=== PATIENT | male | born 1950 | race Caucasian/White ===

== ENCOUNTER 2016-12-02 14:47 | Emergency (ER) | payer OTHER, BC ==
[~2016-12-02] VITALS: Ht 167.6 cm; Wt 83.9 kg
--- NOTE | 2016-12-02 14:51 | NUR ---
Pt bib ra for syncope while transfering to bed, recent prostate removal. Awaiting md order.
[2016-12-02] MEDS ORDERED: IV NS 0.9% 1,000 ML BAG IV ONE (15:00)
[2016-12-02] MEDS ORDERED: IV SET PRIMARY PUMP SET 1 EA INFUS.SET MC ONE ×2 (15:01→19:25)
[2016-12-02] MEDS ORDERED: IV NS 0.9% 1,000 ML ONE ×2 (15:01→19:25)
[2016-12-02 15:13] LABS: BASOPHILS % (AUTO) 0.2 % (0.0-2.0); EOSINOPHILS # (AUTO) 0.1 /CMM (0.0-0.7); EOSINOPHILS % (AUTO) 0.6 % (0.0-6.0); HEMATOCRIT 24 % (39-51); HEMOGLOBIN 8.1 g/dL (13.5-17.5); LYMPHOCYTES # (AUTO) 1.1 /CMM (0.8-4.8); LYMPHOCYTES % (AUTO) 6.4 % (20.0-44.0); MEAN CORPUSCULAR HEMOGLOBIN 32 PG (26.0-33.0); MEAN CORPUSCULAR HGB CONC 34 g/dl (31.0-36.0); MEAN CORPUSCULAR VOLUME 92 fL (80-96); MONOCYTES # (AUTO) 1.1 /CMM (0.1-1.30); MONOCYTES % (AUTO) 6.4 % (2.0-12.0); NEUTROPHILS # (AUTO) 15.2 /CMM (1.8-8.9); NEUTROPHILS % (AUTO) 86.4 % (43.0-81.0); PLATELET COUNT (AUTO) 243 /CMM (150-450); RDW COEFFICIENT OF VARIATION 13.1 (11.5-15.0); RED BLOOD CELL COUNT(AUTO) 2.58 MIL/uL (4.5-6.0); WHITE BLOOD COUNT (AUTO) 17.5 K/uL (4.3-11.0)
[2016-12-02 15:25] LABS: CALCIUM, SERUM 8.2 mg/dL (8.5-10.1); CREATININE 1.6 mg/dL (0.6-1.3); POTASSIUM 4.2 mmol/L (3.5-5.1)
[2016-12-02 15:29] LABS: INR 1.15 (0.87-1.13); PROTHROMBIN TIME 12.1 SECS (9.5-12.7)
[2016-12-02 15:31] LABS: ALBUMIN 2.9 g/dL (3.4-5.0); BILIRUBIN,DIRECT 0.1 mg/dL (0.0-0.2); BILIRUBIN,TOTAL 0.7 mg/dL (0.2-1.0)
[2016-12-02 15:33] LABS: TROPONIN I 0.063 ng/mL (0.00-0.056)
--- NOTE | 2016-12-02 16:30 | NUR ---
PAGED UROLIGIST BILLER FOR DR. BOSE
--- NOTE | 2016-12-02 17:00 | NUR ---
CALLED [facility] FOR TRANSFER OF PATIENT. SPOKE WITH FIDELIA IN ER ADMITTING AND WAITING FOR CONFIRMATION
--- NOTE | 2016-12-02 17:25 | NUR ---
FAXED PTS CLINICAL PAPERWORK TO FIDELIA AT [facility] AND PENDING CALL BACK FOR PLACEMENT
--- NOTE | 2016-12-02 17:43 | NUR ---
RECEIVED CALL BACK FROM FIDELIA AT [facility] WHO CONFIRMED PATIENT MEEDS ADMIT CRITERIA
--- NOTE | 2016-12-02 18:11 | NUR ---
CALLED [facility] ON WILL CALL
--- NOTE | 2016-12-02 19:14 | NUR ---
gave report to tiffany for lenka
--- NOTE | 2016-12-02 19:20 | NUR ---
received patient in bed [id number]. vss. denies any pain or discomfort. will continue to monitor. awaiting for transfer.
[2016-12-02] MEDS ORDERED: IV NS 0.9% 1,000 ML IV ONE (19:30)
--- NOTE | 2016-12-02 19:38 | NUR ---
NEW TRANSFER ROOM ASSIGNMENT - [facility], ROOM 48
--- NOTE | 2016-12-02 19:40 | NUR ---
ADMITTING TO [facility] / [phone] ROOM [address] [facility] [place]
--- NOTE | 2016-12-02 19:49 | NUR ---
Report given to Rosey BRITT for admission in [facility] -room 482.
[2016-12-02 20:25] VITALS: BP 120/78
--- NOTE | 2016-12-02 20:26 | NUR ---
Report given to paramedics for lenka. No acute changes at this time. vss.
== END 2016-12-02 20:27 | disposition short-term general hospital (02) ==
LOC: ER 14:50
DX: R55 Syncope and collapse (principal); E87.1 Hypo-osmolality and hyponatremia; D64.9 Anemia, unspecified; Z95.2 Presence of prosthetic heart valve; Z85.46 Personal history of malignant neoplasm of prostate
CPT/HCPCS: 36415; 71010; 74176; 80048; 80076; 84484; 85025; 85610; 85730; 86850; 93005; 96360; 96361; 99291; A4606; J7030 ×2; Z7610